=== PATIENT | female | born 1980 | race American Indian/Alaskan Native ===

== ENCOUNTER 2020-03-31 23:00 | Emergency (ER) | payer MEDICAID ==
[2020-03-31 23:08] VITALS: BP 130/66
[2020-03-31] MEDS ORDERED: FAMOTIDINE 20 MG/2 ML INJ IV ONE (23:15)
[2020-03-31] MEDS ORDERED: diphenhydrAMINE 50 MG/ML VIAL IV ONE (23:15)
[2020-03-31] MEDS ORDERED: methylPREDNISolone Sod Succinate 125 MG/2 ML INJ IV ONE (23:15)
--- NOTE | 2020-03-31 23:15 | Emergency Department Report ---
HPI - General Chief Complaint: Allergic Reaction Time Seen by Provider: 03/31/20 23:10 - HPI HPI: 39-year-old female with nonsignificant past medical history presents to the hospital complaining of allergic reaction after eating crab legs. Patient has previous allergy to sulfur with reduced swelling however, denies previous allergy to seafood. Patient ate crab legs and went to the bath and wash her hands with soap then subsequently had pruritus to face, hands, and torso. Patient then noticed that she had hives and swelling to her left lip with some mild difficulty breathing and therefore she came to the ED for evaluation. Patient does have an EpiPen at home but was unable to find and administer the medication prior to arrival. She did not take any medications prior to arrival. ED Past Medical Hx - Social History Smoking Status: Never Smoker Substance Use Type: None - Medications Home Medications: Home Medications Medication Instructions Recorded Confirmed Last Taken Type EPINEPHrine [Epipen] 0.3 mg IJ ONCE PRN #1 auto.injct 04/01/20 Unknown Rx Famotidine [Pepcid] 20 mg PO BID #10 tablet 04/01/20 Unknown Rx diphenhydrAMINE [Benadryl CAP] 50 mg PO Q8HR PRN #30 capsule 04/01/20 Unknown Rx predniSONE [Deltasone] 20 mg PO BID #10 tab 04/01/20 Unknown Rx ED Review of Systems ROS: Stated complaint: ALLERGIC REACTION Other details as noted in HPI Comment: All other systems reviewed and negative Physical Exam - Physical Exam Vital Signs: Vital Signs 03/31/20 23:06 Temperature 99.3 F Pulse Rate 90 Respiratory 17 Rate Blood Pressure 130/66 O2 Sat by Pulse 100 Oximetry Physical Exam: General: No acute distress Head: Atraumatic Eyes: Mild right eye conjunctival injection with mild right-sided infraorbital edema ENT: Mild swelling to left upper lip. No tongue swelling, no posterior pharyngeal swelling Neck: Patient complains of a swelling sensation to her neck however, normal appearance without stridor Chest: Clear to auscultation bilaterally CV: Regular rate and rhythm Abdomen: Soft, normal bowel sounds, nontender, nondistended, no rebound or guarding Back: Normal inspection Extremity: Normal inspection, full range of motion Neuro: Alert O x 3, no facial asymmetry, speech clear, no gross motor sensory deficit Psych: Appropriate behavior Skin: Hives of the torso, face, and arm ED Course Vital Signs 03/31/20 23:06 Temperature 99.3 F Pulse Rate 90 Respiratory 17 Rate Blood Pressure 130/66 O2 Sat by Pulse 100 Oximetry ED Medical Decision Making - Medical Decision Making Patient presents to the hospital with acute left reaction after eating shellfish. Patient received Solu-Medrol, Benadryl, Pepcid in the ED with improvement of symptoms. Patient will be advised to avoid all shellfish (allergy added to current medical record). She also provided additional medications for allergic reaction and another epi pen refill Critical Care Time: No Critical care attestation.: If time is entered above; I have spent that time in minutes in the direct care of this critically ill patient, excluding procedure time. ED Disposition Clinical Impression: Shellfish allergy Disposition: TO HOME OR SELFCARE Is pt being admited?: No Does the pt Need Aspirin: No Condition: Stable Instructions: Seafood Allergy, How to Use an Auto-Injector Pen Additional Instructions: Take the medication as prescribed. Avoid eating and handling shellfish. Follow-up with your doctor or doctor/clinic provided. Return if symptoms worsen as indicated by your discharge instructions. Prescriptions: diphenhydrAMINE [Benadryl CAP] 50 mg PO Q8HR PRN #30 capsule PRN Reason: Allergic Reaction predniSONE [Deltasone] 20 mg PO BID #10 tab EPINEPHrine [Epipen] 0.3 mg IJ ONCE PRN #1 auto.injct PRN Reason: Anaphylaxis Famotidine [Pepcid] 20 mg PO BID #10 tablet Referrals: PRIMARY MD ROB [Primary Care Provider] - 3-5 Days [facility] [Provider Group] - 3-5 Days [facility] [Provider Group] - 3-5 Days AGATA MELENDEZ MD [Staff Physician] - 3-5 Days Time of Disposition: 02:21
== END 2020-04-01 02:40 | disposition home or self-care (01) ==
LOC: ED 23:00
DX: T78.1XXA Other adverse food reactions, not elsewhere classified, initial encounter (principal); Z88.2 Allergy status to sulfonamides; Z79.899 Other long term (current) drug therapy; X58.XXXA Exposure to other specified factors, initial encounter; Y92.89 Other specified places as the place of occurrence of the external cause
CPT/HCPCS: 96374; 96375; 99282; J1200; J2930